=== PATIENT | female | born 1930 | race Caucasian/White ===

== ENCOUNTER → 2016-12-23 | Outpatient (CLI) | payer OTHER ==
[~2016-12-23] MED LIST: DIAZEPAM; DIAZEPAM PO; GLUCOTROL XL; GLUCOTROL XL PO; HCTZ; HCTZ PO; LIPITOR PO; MOBIC PO; SKELAXIN PO; VASERETIC 10-251 TAB; VASERETIC 10-251 TAB PO; VICODIN 5/500 T1 TAB PO
[2016-12-23 13:41] LABS: INR 1.3; PROTHROMBIN TIME (PATIENT) 14.6 SECONDS (9.5-12.4)
== END | disposition home or self-care (01) ==
LOC: SLAB 12:16
PROVIDERS: Internal Medicine Cardiovascular Disease
DX: I48.91 Unspecified atrial fibrillation (principal)
CPT/HCPCS: 36415; 85610

== ENCOUNTER → 2017-01-06 | Outpatient (CLI) | payer OTHER ==
[2017-01-06 16:05] LABS: INR 1.6; PROTHROMBIN TIME (PATIENT) 17.2 SECONDS (9.6-11.5)
== END | disposition home or self-care (01) ==
LOC: SLAB 13:01
PROVIDERS: Internal Medicine Cardiovascular Disease
DX: I48.91 Unspecified atrial fibrillation (principal)
CPT/HCPCS: 36415; 85610

== ENCOUNTER → 2017-01-18 | Outpatient (CLI) | payer OTHER ==
[2017-01-18 16:18] LABS: INR 2.3; PROTHROMBIN TIME (PATIENT) 25.7 SECONDS (9.5-12.4)
== END | disposition home or self-care (01) ==
LOC: SLAB 15:27
PROVIDERS: Internal Medicine Cardiovascular Disease
DX: I48.91 Unspecified atrial fibrillation (principal)
CPT/HCPCS: 36415; 85610

== ENCOUNTER → 2017-03-08 | Outpatient (CLI) | payer OTHER ==
[2017-03-08 11:56] LABS: INR 2.6; PROTHROMBIN TIME (PATIENT) 29.6 SECONDS (9.5-12.4)
== END | disposition home or self-care (01) ==
LOC: SLAB 11:25
PROVIDERS: Internal Medicine Cardiovascular Disease
DX: Z51.81 Encounter for therapeutic drug level monitoring (principal); I48.91 Unspecified atrial fibrillation; Z79.01 Long term (current) use of anticoagulants
CPT/HCPCS: 36415; 85610